=== PATIENT | female | born 1935 | race Caucasian/White ===

== ENCOUNTER → 2016-12-09 | Outpatient (CLI) | payer MEDICARE, MEDICAID | END | disposition short-term general hospital (02) | LOC: CLCARD 10:00 | DX: R07.9 Chest pain, unspecified (principal); I25.10 Atherosclerotic heart disease of native coronary artery without angina pectoris; I11.0 Hypertensive heart disease with heart failure; I50.30 Unspecified diastolic (congestive) heart failure; E66.9 Obesity, unspecified; N28.9 Disorder of kidney and ureter, unspecified; Z79.82 Long term (current) use of aspirin; Z79.899 Other long term (current) drug therapy ==